=== PATIENT | male | born 1980 | race Caucasian/White ===

== ENCOUNTER 2016-04-29 07:25 | Day surgery (SDC) | payer OTHER ==
[2016-04-27 14:48] VITALS: BMI 36.3
[~2016-04-29 07:25] MED LIST: LACTATED RINGERS 1,000 ML IV SCH
[2016-04-29] MEDS ORDERED: LIDOCAINE 1% 20 ML VIAL (10MG/ML) FOR IV START INTRADERMA ONE (07:51)
[2016-04-29 07:53] VITALS: RESP 16; TEMP 98.3
[2016-04-29] MEDS ORDERED: PROPOFOL 10 MG/ML 20 ML VIAL IV ONE (08:02)
--- NOTE | 2016-04-29 08:22 | P.PCN ---
Date of Procedure: 04/29/16 Procedure(s) Performed: Brief history: Patient is a pleasant 36-year-old white male, scheduled for an elective upper endoscopy as well as colonoscopy as a part of evaluation of intermittent nausea , vomiting, abdominal pain and change in bowel habits for the last 9 months duration. He is presently on Prilosec and Zofran as needed with some minimal improvement in symptoms. Procedure performed: Esophagogastroduodenoscopy with biopsy Colonoscopy with biopsy Preoperative diagnosis: Intermittent nausea, vomiting Abdominal pain and change in bowel habits Anesthesia: MAC Procedure: After informed consent was obtained from the patient was brought into the endoscopy unit and IV conscious sedation was administered by anesthesia under continuous monitoring. Initially upper endoscopy was done. The Olympus GF 160 video endoscope was inserted inserted into the mouth and esophagus intubated without any difficulty and was gradually advanced into the stomach and duodenum and carefully examined. The bulb and second part of the duodenum appeared normal. Biopsies were done from this area to rule out celiac disease. The scope was then withdrawn into the stomach adequately insufflated with air and upon careful examination the antrum had mild gastritis and biopsies were done from this area the body, cardia and fundus appeared normal. The scope was then withdrawn into the esophagus. The GE junction was located at 40 cm to the incisors. It appeared regular with no erythema erosions or ulcerations. Rest of the esophagus appeared normal. Patient tolerated the procedure well. At this time the patient continued to remain sedation. Initial digital rectal examination was normal. Olympus CF 160 video colonoscope was then inserted into the rectum and gradually advanced to the cecum without any difficulty. Careful examination was performed as the scope was gradually being withdrawn. The prep was excellent. terminal ileum was intubated and 20 cm visualized and appeared normal. The cecum, ascending colon, transverse colon, descending colon, sigmoid colon and rectum appeared normal. random biopsies were done from the ascending and descending colon to rule out microscopic/collagenous colitis.Retroflexion was performed in the rectum and no lesions were noted. Patient tolerated the procedure well. Impression: 1. Upper endoscopy revealed mild antral gastritis, no evidence of esophagitis or peptic ulcer disease. 2. Colonoscopy revealed normal-appearing colon from rectum to cecum as well as terminal ileum with no evidence of colitis or colorectal neoplasia. Recommendations: Findings of this examination were discussed with the patient as well as his family. He was advised to follow with the biopsy results. He was advised to continue with Prilosec 20 mg daily and Zofran as needed for his symptoms.
[2016-04-29 08:40] VITALS: BP 111/83; PULSE 75
== END 2016-04-29 09:07 | disposition home or self-care (01) ==
LOC: ORWHC2ENDO 07:25
PROVIDERS: ATTEND Internal Medicine Gastroenterology
DX: K29.50 Unspecified chronic gastritis without bleeding (principal); I10 Essential (primary) hypertension; R19.4 Change in bowel habit; F12.90 Cannabis use, unspecified, uncomplicated; F43.10 Post-traumatic stress disorder, unspecified; K21.9 Gastro-esophageal reflux disease without esophagitis; Z79.899 Other long term (current) drug therapy; Z87.891 Personal history of nicotine dependence
CPT/HCPCS: 88305; 88342; 45380; 43239; J2704; 99153

== ENCOUNTER → 2016-05-14 | Outpatient (CLI) | payer OTHER ==
--- NOTE | 2016-05-14 12:13 | CT ---
EXAMINATION TYPE: CT abdomen pelvis w con DATE OF EXAM: 05/14/2016 10:10 AM COMPARISON: NONE INDICATION: LUQ to mid LLQ pain DLP: 2199 mGycm, Automated exposure control for dose reduction was used. CONTRAST: 100 mL of Omnipaque 300. Study performed with Oral Contrast TECHNIQUE: Axial images were obtained from above the diaphragm to the pubic rami in the axial plane a t 5 mm thick sections. Reconstructed images are reviewed on the computer in the coronal plane. FINDINGS: Limited CT sections are obtained the lung bases. The lung bases are clear. CT ABDOMEN: Liver: Normal Spleen: Normal Pancreas: Normal Adrenal glands: The adrenal glands are normal. Gallbladder: Normal Kidneys: No masses are evident. No hydronephrosis is present. No cysts are present. Delayed images were obtained through the kidneys, which remain unremarkable. Aorta: Normal Inferior vena cava: Normal. CT PELVIS: Loops of bowel within the abdomen and pelvis are normal. There are loops of bowel which are incom pletely distended or lack oral contrast limiting their evaluation. Appendix: Normal as visualized. Urinary bladder: Normal. Genitourinary structures: Prostate is normal Osseous structures: Small bone island may be within the medial right iliac wing IMPRESSIONS: 1. Unremarkable CT abdomen and pelvis 2. No suspicious abnormality to account for left mid to upper quadrant pain
== END | disposition home or self-care (01) ==
LOC: RADCTMAIN 07:32
PROVIDERS: ATTEND Internal Medicine Gastroenterology
DX: R10.32 Left lower quadrant pain (principal)
CPT/HCPCS: 74177; 36415; Q9967